=== PATIENT | female | born 1965 | race Two or more races ===

== ENCOUNTER 2019-08-23 22:48 | Emergency (ER) | payer SELFPAY ==
[~2019-08-23] VITALS: Ht 157.5 cm; Wt 61.2 kg
[2019-08-23 23:29] VITALS: Ht 157.5 cm; Wt 61.2 kg
[2019-08-24 00:18] LABS: UA SPECIFIC GRAVITY 1.025 (1.005-1.035); microscopic required? YES; urine erythrocyte 2+ (NEGATIVE)
[2019-08-24 01:24] VITALS: BP 111/58
== END 2019-08-24 01:24 | disposition home or self-care (01) ==
LOC: ED 22:48
PROVIDERS: Emergency Medicine
DX: J10.1 Influenza due to other identified influenza virus with other respiratory manifestations (principal); R11.2 Nausea with vomiting, unspecified
CPT/HCPCS: 87804; J1885; J2405; J7030